=== PATIENT | male | born 1995 | race Caucasian/White ===

== ENCOUNTER 2025-03-22 11:29 | Inpatient (IN) | payer SELFPAY ==
[2025-03-22 11:33] VITALS: BP 155/77; PULSE 108; RESP 16; TEMP 36.9; O2SAT 100; BMI 28.1
--- NOTE | 2025-03-22 14:29 | DI.CT.S_ITS ---
PROCEDURE: CT SOFT TISSUE NECK W CON INDICATIONS: abscess TECHNIQUE: After the administration of intravenous contrast, 3.0 mm axial sections acquired from the sella to the aortic arch. Additional oblique axial 3.0 mm sections acquired through the pharynx. 3 mm thick coronal and sagittal reformats were generated. For radiation dose reduction, the following was used: automated exposure control. COMPARISON: None. FINDINGS: Image quality: Excellent. Lymph nodes: Increased number of small cervical lymph nodes throughout the neck bilaterally. Vessels: Visualized vasculature appears patent. Neck spaces: The oropharynx, nasopharynx, and pharynx demonstrate no mucosal lesions. The vocal cords, false vocal cords, pyriform sinuses, epiglottis, vallecula, and tongue base all appear normal. Subcutaneous edema is seen in the lateral right neck overlying the sternocleidomastoid muscle with a small area of confluent edema but no peripherally enhancing drainable fluid collection. Mild overlying skin thickening. Additional smaller areas of subcutaneous edema are seen in the anterior and lateral right and left face and the left posterior neck. Glands: The parotid and submandibular glands appear normal. Thyroid is unremarkable. Miscellaneous: Visualized brain and orbits appear normal. Lung apices appear clear. Superficial soft tissues appear normal. Bones: No suspicious bony lesions. Visualized sinuses and mastoids appear unremarkable. IMPRESSION: 1. Multifocal small areas of subcutaneous edema in the bilateral face and neck, most notably in the right lateral upper neck overlying the sternocleidomastoid muscle. No drainable abscess is seen. 2. Increased number of cervical lymph nodes, likely reactive. Approved by: Cr Pichardo M.D. on 03/22/2025 at 14:53
--- NOTE | 2025-03-22 14:37 | ED_ITS ---
HPI - Skin/Abscess/Foreign Bdy <Kurtis Pettit PA-C - Last Filed: 03/22/25 17:39> General Chief complaint: Skin/Abscess/Foreign Body Stated complaint: swelling on right side of face Time Seen by Provider: 03/22/25 14:15 Source: patient Mode of arrival: Family Vehicle Limitations: no limitations History of Present Illness HPI narrative: 30-year-old male with no reported past medical history presents to the ED with 2 months of widespread skin rash and abscesses. Patient was seen at the walk-in clinic on 03/18/2025 for a facial abscess on the right cheek, declined to get it drained due to fear of scarring. Patient was given Bactrim which he is currently taking. Prior to this visit, patient had also failed antibiotic treatment with clindamycin and doxycycline. No wound cultures have been performed to date. Patient states that his abscesses started 1st on his upper back, he currently has 3 painful abscesses. There is 1 on his right cheek, a large abscess on the right, anterolateral region of the neck, 1 in left backside of the neck. No active drainage at this time. Patient complains of chills, nausea, vomiting, pain at the site of the abscesses. No chest pain, shortness of breath, fever, lightheadedness, dizziness, syncope. Patient denies IVDU. Patient states he recently used MDMA, denies any other drug use. Sexually active, has a girlfriend he has known for some time. Denies any known immuno compromising conditions. Related Data Previous Rx's ?Medication ?Instructions ?Recorded sulfamethoxazole 800 1 tab PO BID 7 days #14 tabs 03/18/25 mg-trimethoprim 160 mg tablet (Bactrim DS) Allergies Allergy/AdvReac Type Severity Reaction Status Date / Time No Known Drug Allergies Allergy Verified 03/22/25 11:38 Review of Systems <Kurtis Pettit PA-C - Last Filed: 03/22/25 17:39> Constitutional Constitutional: Reports chills, Denies fatigue, Denies fever(s), Denies frequent falls, Denies lethargy and Denies weakness Eyes Eyes: Denies change in vision, Denies eye discharge, Denies irritation and Denies loss of vision ENT Ears, Nose, Mouth, and Throat: Denies change in voice, Denies dizziness, Denies neck pain, Denies sore throat and Denies throat swelling Cardiovascular Cardiovascular: Denies chest pain, Denies irregular heart rhythm, Denies lightheadedness, Denies palpitations, Denies dyspnea, Denies dyspnea on exertion and Denies orthopnea Respiratory Respiratory: Denies cough, Denies dyspnea, Denies dyspnea on exertion and Denies wheezing Gastrointestinal Gastrointestinal: Denies abdominal pain, Denies change in bowel habits, Denies diarrhea, Reports nausea and Reports vomiting Musculoskeletal Musculoskeletal: Denies neck pain and Denies numbness Integumentary/Breasts Skin/Breast: Denies pruritus, Reports non-healing lesions, Denies erythema, Reports rash and Reports wounds Neurologic Neurologic: Denies behavioral changes, Denies confusion, Denies dizziness, Denies frequent falls, Denies loss of vision, Denies numbness and Denies weakness Psychiatric Psychiatric: Denies anxiety, Denies behavioral changes, Denies confusion, Denies depression, Denies homicidal ideation and Denies suicidal ideation Endocrine Endocrine: Denies fatigue, Denies flushing and Denies palpitations Hematologic/Lymphatic Hematologic/Lymphatic: Denies easy bruising Allergic/Immunologic Allergic/Immunologic: Denies urticaria, Denies throat swelling and Denies wheezing Patient History <Kurtis Pettit PA-C - Last Filed: 03/22/25 17:39> Social History household members: friend(s) Smoking Status: Current every day smoker alcohol intake: current Smoking Status: Current every day smoker tobacco type: e-cigarettes and vaping Exam <Kurtis Pettit PA-C - Last Filed: 03/22/25 17:39> Narrative Exam Narrative: Const General:?cooperative, healthy appearing and comfortable [facility] Head:?normal to inspection Ears:?hearing grossly normal bilaterally Nose:?external nose normal Face and sinus:?normal facial exam and sinuses nontender Mouth:?oral mucosae normal Throat:?posterior oropharynx normal Eyes General:?appearance normal, both eyes and all related structures Neck Neck:?normal visual inspection and no lymphadenopathy noted Resp Effort & Inspection:?normal respiratory effort Auscultation:?clear to auscultation bilaterally Cardio Rate:?regular rate Rhythm:?regular rhythm Integumentary Multiple endurant and fluctuant abscesses. Abscess to the right anterolateral neck, right facial cheek, left backside of the neck. No discharge noted on exam. There are multiple healing scabs across the neck and back. Neuro General:?patient alert, patient awake and patient oriented x3 Initial Vital Signs Initial Vital Signs: Vital Signs Temperature 98.4 F 03/22/25 11:33 Pulse Rate 108 H 03/22/25 11:33 Respiratory Rate 16 03/22/25 11:33 Blood Pressure 155/77 H 03/22/25 11:33 Pulse Oximetry 100 03/22/25 11:33 Oxygen Delivery Method Room Air 03/22/25 11:33 <Leo Barron MD - Last Filed: 03/22/25 20:21> Initial Vital Signs Initial Vital Signs: Vital Signs Temperature 98.4 F 03/22/25 11:33 Pulse Rate 108 H 03/22/25 11:33 Respiratory Rate 16 03/22/25 11:33 Blood Pressure 155/77 H 03/22/25 11:33 Pulse Oximetry 100 03/22/25 11:33 Oxygen Delivery Method Room Air 03/22/25 11:33 Course <Kurtis Pettit PA-C - Last Filed: 03/22/25 17:39> Orders Ordered: ED Orders 03/22/25 14:25 CBC Auto Diff [Complete Blood Count AUTO DIFF] Stat CMP [Comprehensive Metabolic Panel] Stat HIV 1 & 2 Ab/Ag 4th Gen Combo Stat Lactate (Lactic Acid) Stat Lipase Stat 03/22/25 14:27 A1C [Hemoglobin A1C% w Est Avg Glu] Stat 03/22/25 14:29 CT soft tissue neck w con Stat 03/22/25 14:50 Blood Culture Stat Urine Drug Screen, Rapid Stat 03/22/25 15:43 Wound Culture and Gram Stain Stat Hydrocodone Bitart/Acetaminophen (Hydrocodone/Acet 5/325 Tablet) 2 tab PO Q4H PRN PRN Reason: Pain, Severe (7-10) Hydrocodone Bitart/Acetaminophen (Hydrocodone/Acet 5/325 Tablet) 1 tab PO Q4H PRN PRN Reason: Pain, Moderate (4-6) Vancomycin HCl (Vancomycin) 1,250 mg in 250 mls @ 250 mls/hr IV Q8H PRAVIN Naloxone HCl (Naloxone 0.4 Mg/Ml Vial) 0.2 mg IV Q2MIN PRN PRN Reason: Opiate Reversal Vancomycin HCl (Vancomycin Per Pharmacy) 1 request MISC NOW PRN PRN Reason: Cellulitis neck Vancomycin HCl (Vancomycin Trough) 1 request MISC NOW ONE Stop: 03/23/25 15:31 Discontinued Medications Acetaminophen (Acetaminophen 325 Mg Tablet) 975 mg PO NOW ONE Stop: 03/22/25 14:33 Last Admin: 03/22/25 14:45 Dose: 975 mg Documented By: [place] Vancomycin HCl/Dextrose (Vancomycin) 1,500 mg in 300 mls @ 200 mls/hr IV NOW ONE Stop: 03/22/25 16:54 Last Infusion: 03/22/25 18:10 Dose: Infused Documented By: Admin: 03/22/25 16:05 Dose: 200 mls/hr Documented By: [place] Ketorolac Tromethamine (Ketorolac 30 Mg/Ml Vial) 30 mg IV NOW ONE Stop: 03/22/25 14:33 Last Admin: 03/22/25 14:44 Dose: 30 mg Documented By: [place] Ondansetron HCl (Ondansetron 4 Mg/2 Ml Inj) 4 mg IV NOW ONE Stop: 03/22/25 14:33 Last Admin: 03/22/25 14:44 Dose: 4 mg Documented By: [place] Vital Signs Vital signs: Vital Signs - 8 hr 03/22/25 16:10 Pulse Rate 83 Respiratory Rate 16 Blood Pressure 144/68 H Pulse Oximetry 98 Oxygen Delivery Method Room Air <Leo Barron MD - Last Filed: 03/22/25 20:21> Orders Ordered: ED Orders 03/22/25 14:25 CBC Auto Diff [Complete Blood Count AUTO DIFF] Stat CMP [Comprehensive Metabolic Panel] Stat HIV 1 & 2 Ab/Ag 4th Gen Combo Stat Lactate (Lactic Acid) Stat Lipase Stat 03/22/25 14:27 A1C [Hemoglobin A1C% w Est Avg Glu] Stat 03/22/25 14:29 CT soft tissue neck w con Stat 03/22/25 14:50 Blood Culture Stat Urine Drug Screen, Rapid Stat 03/22/25 15:43 Wound Culture and Gram Stain Stat Hydrocodone Bitart/Acetaminophen (Hydrocodone/Acet 5/325 Tablet) 2 tab PO Q4H PRN PRN Reason: Pain, Severe (7-10) Hydrocodone Bitart/Acetaminophen (Hydrocodone/Acet 5/325 Tablet) 1 tab PO Q4H PRN PRN Reason: Pain, Moderate (4-6) Vancomycin HCl (Vancomycin) 1,250 mg in 250 mls @ 250 mls/hr IV Q8H PRAVIN Naloxone HCl (Naloxone 0.4 Mg/Ml Vial) 0.2 mg IV Q2MIN PRN PRN Reason: Opiate Reversal Vancomycin HCl (Vancomycin Per Pharmacy) 1 request MISC NOW PRN PRN Reason: Cellulitis neck Vancomycin HCl (Vancomycin Trough) 1 request MISC NOW ONE Stop: 03/23/25 15:31 Discontinued Medications Acetaminophen (Acetaminophen 325 Mg Tablet) 975 mg PO NOW ONE Stop: 03/22/25 14:33 Last Admin: 03/22/25 14:45 Dose: 975 mg Documented By: [place] Vancomycin HCl/Dextrose (Vancomycin) 1,500 mg in 300 mls @ 200 mls/hr IV NOW ONE Stop: 03/22/25 16:54 Last Infusion: 03/22/25 18:10 Dose: Infused Documented By: Admin: 03/22/25 16:05 Dose: 200 mls/hr Documented By: [place] Ketorolac Tromethamine (Ketorolac 30 Mg/Ml Vial) 30 mg IV NOW ONE Stop: 03/22/25 14:33 Last Admin: 03/22/25 14:44 Dose: 30 mg Documented By: [place] Ondansetron HCl (Ondansetron 4 Mg/2 Ml Inj) 4 mg IV NOW ONE Stop: 03/22/25 14:33 Last Admin: 03/22/25 14:44 Dose: 4 mg Documented By: [place] Vital Signs Vital signs: Vital Signs - 8 hr 03/22/25 16:10 Pulse Rate 83 Respiratory Rate 16 Blood Pressure 144/68 H Pulse Oximetry 98 Oxygen Delivery Method Room Air MDM - Skin/Abscess/Foreign Bdy <Kurtis Pettit PA-C - Last Filed: 03/22/25 17:39> Lab Data 03/22/25 14:25 03/22/25 14:25 Labs: Lab Results 03/22/25 03/22/25 03/22/25 Range/Units 14:25 14:27 14:50 WBC 7.2 (4.5-11.0) X10^3/uL RBC 5.14 (4.5-5.9) X10^6/uL Hgb 15.4 (13.5-17.5) g/dL Hct 45.7 (41-53) % MCV 88.9 (80-100) fL MCH 30.0 (26-34) PG MCHC 33.7 (30-36) % RDW 13.6 (11.6-14.8) % Plt Count 395 (150-400) X10^3/uL Neut % (Auto) 75.7 H (50-75) % Lymph % (Auto) 16.2 L (25-40) % [place] % (Auto) 5.2 (3-14) % Eos % (Auto) 1.9 L (2-4) % Baso % (Auto) 1.0 (0-2) % Neut # (Auto) 5400 (4455-0950) /uL Lymph # (Auto) 1200 (0962-6785) /uL [place] # (Auto) 400 (0-900) /uL Eos # (Auto) 100 (0-450) /uL Baso # (Auto) 100 (0-100) /uL Sodium 138 (137-145) mmol/L Potassium 4.3 (3.4-5.1) mmol/L Chloride 102 (98-107) mmol/L Carbon Dioxide 27 (22-32) mmol/L BUN 13 (9-20) mg/dL Creatinine 0.69 (0.66-1.25) mg/dL Estimated GFR > 60 (>60) mL/min BUN/Creatinine Ratio 18.8 (6-22) Glucose 98 (70-99) mg/dL Hemoglobin A1c 4.8 (4.0-6.0) % Lactate 1.4 (0.7-2.1) mmol/L Calcium 9.7 (8.4-10.2) mg/dL Total Bilirubin 0.5 (0.2-1.3) mg/dL AST 24 (17-59) IU/L ALT 27 (<50) IU/L Alkaline Phosphatase 102 (38-126) U/L Total Protein 7.3 (6.3-8.2) g/dL Albumin 4.5 (3.5-5.0) g/dL Globulin 2.8 (1.7-4.1) g/dL Albumin/Globulin Ratio 1.6 (1.0-2.8) Lipase 76 (23-300) U/L U Opiates 300ng/mL cut Negative (Negative) Ur Oxycodone Screen Negative (Negative) Urine Methadone Screen Negative (Negative) Ur Barbiturates Screen Negative (Negative) U Tricyclic Antidepress Negative (Negative) Ur Phencyclidine Scrn Negative (Negative) Ur Amphetamines Screen Positive H (Negative) U Methamphetamines Scrn Positive H (Negative) Ur MDMA Scrn (Ecstasy) Negative (Negative) U Benzodiazepines Scrn Negative (Negative) Urine Cocaine Screen Negative (Negative) U Marijuana (THC) Screen Negative (Negative) Urine pH Normal (Normal) Urine Specific [place] Normal (Normal) Ur Creatinine Normal (Normal) HIV 1&2 Ab/P24 Ag 4thGn Negative (NEGATIVE) Urine Dip Bedside Urine Glucose Negative Bedside Urine Bilirubin - Negative Bedside Urine Ketone - Negative Urine Specific [place] 1.015 Bedside Urine Occult Blood - Negative Bedside Urine pH 8.0 Bedside Urine Protein - Negative Bedside Urine Urobilinogen - Negative Bedside Urine Nitrite - Negative Bedside Urine Leukocytes - Negative Esterase MDM Narrative Medical decision making narrative: 30-year-old male with no reported past medical history presents to the ED with 2 months of widespread skin rash and abscesses. Concern for abscess versus sepsis versus immunocompromised conditions versus other. Will obtain labs, UA, UDS, blood cultures. Will give Toradol, Zofran, Tylenol. Will reassess. Labs within normal limits. WBC 7.2. Liver and kidney function within normal limits. A1c 4.8. UA is negative for UTI. Urine tox screen is positive for amphetamines and methamphetamines. Patient endorses ADHD and takes medication for it. Patient denies taking meth amphetamines, endorses he took a MDMA. Also vague about how long he has been taking recreational drugs for. De roofed the scabbed portion of the neck wound, sample sent for wound culture. IV antibiotics started. Will consult hospitalist for admission for IV antibiotics. Hospitalist Dr. Arita was consulted, he graciously accepts patient for inpatient admission. Findings and disposition discussed with patient, patient is agreeable. Medical records reviewed: Yes <Leo Barron MD - Last Filed: 03/22/25 20:21> Lab Data Labs: Lab Results 03/22/25 03/22/25 03/22/25 Range/Units 14:25 14:27 14:50 WBC 7.2 (4.5-11.0) X10^3/uL RBC 5.14 (4.5-5.9) X10^6/uL Hgb 15.4 (13.5-17.5) g/dL Hct 45.7 (41-53) % MCV 88.9 (80-100) fL MCH 30.0 (26-34) PG MCHC 33.7 (30-36) % RDW 13.6 (11.6-14.8) % Plt Count 395 (150-400) X10^3/uL Neut % (Auto) 75.7 H (50-75) % Lymph % (Auto) 16.2 L (25-40) % [place] % (Auto) 5.2 (3-14) % Eos % (Auto) 1.9 L (2-4) % Baso % (Auto) 1.0 (0-2) % Neut # (Auto) 5400 (5312-6724) /uL Lymph # (Auto) 1200 (0231-8693) /uL [place] # (Auto) 400 (0-900) /uL Eos # (Auto) 100 (0-450) /uL Baso # (Auto) 100 (0-100) /uL Sodium 138 (137-145) mmol/L Potassium 4.3 (3.4-5.1) mmol/L Chloride 102 (98-107) mmol/L Carbon Dioxide 27 (22-32) mmol/L BUN 13 (9-20) mg/dL Creatinine 0.69 (0.66-1.25) mg/dL Estimated GFR > 60 (>60) mL/min BUN/Creatinine Ratio 18.8 (6-22) Glucose 98 (70-99) mg/dL Hemoglobin A1c 4.8 (4.0-6.0) % Lactate 1.4 (0.7-2.1) mmol/L Calcium 9.7 (8.4-10.2) mg/dL Total Bilirubin 0.5 (0.2-1.3) mg/dL AST 24 (17-59) IU/L ALT 27 (<50) IU/L Alkaline Phosphatase 102 (38-126) U/L Total Protein 7.3 (6.3-8.2) g/dL Albumin 4.5 (3.5-5.0) g/dL Globulin 2.8 (1.7-4.1) g/dL Albumin/Globulin Ratio 1.6 (1.0-2.8) Lipase 76 (23-300) U/L U Opiates 300ng/mL cut Negative (Negative) Ur Oxycodone Screen Negative (Negative) Urine Methadone Screen Negative (Negative) Ur Barbiturates Screen Negative (Negative) U Tricyclic Antidepress Negative (Negative) Ur Phencyclidine Scrn Negative (Negative) Ur Amphetamines Screen Positive H (Negative) U Methamphetamines Scrn Positive H (Negative) Ur MDMA Scrn (Ecstasy) Negative (Negative) U Benzodiazepines Scrn Negative (Negative) Urine Cocaine Screen Negative (Negative) U Marijuana (THC) Screen Negative (Negative) Urine pH Normal (Normal) Urine Specific [place] Normal (Normal) Ur Creatinine Normal (Normal) HIV 1&2 Ab/P24 Ag 4thGn Negative (NEGATIVE) Urine Dip Bedside Urine Glucose Negative Bedside Urine Bilirubin - Negative Bedside Urine Ketone - Negative Urine Specific [place] 1.015 Bedside Urine Occult Blood - Negative Bedside Urine pH 8.0 Bedside Urine Protein - Negative Bedside Urine Urobilinogen - Negative Bedside Urine Nitrite - Negative Bedside Urine Leukocytes - Negative Esterase Discharge Plan Departure Patient Disposition: Admitted As Inpatient Clinical Impression: Abscess of skin or subcutaneous tissue Qualifiers: Site of cutaneous abscess: neck Qualified Code(s): L02.11 - Cutaneous abscess of neck Admit Date/Time: 03/22/25 17:15 Admit Provider: Karlos Singh ED Sign-out <Leo Barron MD - Last Filed: 03/22/25 20:21> Cosign ED Attending Drake Attestation: I was available for consultation during this patient's time in the emergency department however they were in a separate care area and I was not consulted on this patient's care they were seen solely by the above CONOR
[2025-03-22 14:41] LABS: Add Manual Diff / Slide Review NO; Basophils Absolute Auto 100 /uL (0-100); Eosinophils Absolute Auto 100 /uL (0-450); Eosinophils Percent Auto 1.9 % (2-4); Hematocrit 45.7 % (41-53); Hemoglobin 15.4 g/dL (13.5-17.5); Lymphocytes Absolute Auto 1200 /uL (1100-4500); Lymphocytes Percent Auto 16.2 % (25-40); Mean Corpuscular HGB Conc 33.7 % (30-36); Mean Corpuscular Volume 88.9 fL (80-100); Monocytes Absolute Auto 400 /uL (0-900); Monocytes Percent Auto 5.2 % (3-14); Neutrophils Absolute Auto 5400 /uL (1500-7000); Neutrophils Percent Auto 75.7 % (50-75); Platelet Count 395 X10^3/uL (150-400); Red Blood Cell Count 5.14 X10^6/uL (4.5-5.9); Red Cell Distribution Width 13.6 % (11.6-14.8); White Blood Cell Count 7.2 X10^3/uL (4.5-11.0)
[2025-03-22] MEDS: ONDANSETRON 4 MG/2 ML INJ IV (14:44)
[2025-03-22] MEDS: KETOROLAC 30 MG/ML VIAL IV (14:44)
[2025-03-22] MEDS: ACETAMINOPHEN 325 MG TABLET 975 MG PO (14:45)
[2025-03-22 14:53] LABS: Lactate (Lactic Acid) 1.4 mmol/L (0.7-2.1)
[2025-03-22 14:54] LABS: Alanine Aminotransferase 27 IU/L (<50); Albumin 4.5 g/dL (3.5-5.0); Albumin Globulin Ratio 1.6 (1.0-2.8); Alkaline Phosphatase 102 U/L (38-126); Aspartate Aminotransferase 24 IU/L (17-59); BUN Creatinine Ratio 18.8 (6-22); Bilirubin Total 0.5 mg/dL (0.2-1.3); Blood Urea Nitrogen 13 mg/dL (9-20); Calcium 9.7 mg/dL (8.4-10.2); Carbon Dioxide 27 mmol/L (22-32); Chloride 102 mmol/L (98-107); Estimated Glomerular Filt Rate > 60 mL/min (>60); Globulin 2.8 g/dL (1.7-4.1); Glucose 98 mg/dL (70-99); HEMOLYSIS < 15 (0-50); Lipase 76 U/L (23-300); Potassium 4.3 mmol/L (3.4-5.1); Sodium 138 mmol/L (137-145); Total Protein 7.3 g/dL (6.3-8.2)
[2025-03-22 15:18] LABS: Ur Creatinine Normal (Normal); Ur Specific Gravity Normal (Normal); Urine Cocaine Negative (Negative); Urine Opiates Negative (Negative); Urine THC Negative (Negative); Urine pH Normal (Normal)
[2025-03-22 15:19] LABS: Urine Amphetamines Positive (Negative); Urine Barbiturates Negative (Negative); Urine Benzodiazepines Negative (Negative); Urine MDMA Negative (Negative); Urine Methadone Negative (Negative); Urine Oxycodone Negative (Negative); Urine Phencyclidine Negative (Negative); Urine Tricyclic Antidepressant Negative (Negative)
[2025-03-22 15:25] LABS: Hemoglobin A1C% w Est Avg Glu 4.8 % (4.0-6.0)
[2025-03-22] MEDS: VANCOMYCIN 1,500 MG/300 ML PIGGYBACK 200 MG IV (16:05)
[2025-03-22 16:10] VITALS: BP 144/68; PULSE 83; RESP 16; O2SAT 98
[2025-03-22 17:09] LABS: HIV 1 & 2 Ab/Ag 4th Gen Combo NEGATIVE (NEGATIVE)
--- NOTE | 2025-03-22 17:48 | PM.HP.1 ---
History of Present Illness History of Present Illness Date Patient Seen: 03/22/25 Chief complaint: Cellulitis right neck and face with carbuncle Narrative: Chief complaint: Right-sided neck pain on a stiffness and fever and chills secondary to cellulitis and carbuncle History of present illness: 30-year-old male with no reported past medical history presents to the ED with 2 months of widespread skin rash and abscesses. Patient was seen at the walk-in clinic on 03/18/2025 for a facial abscess on the right cheek, declined to get it drained due to fear of scarring. Patient was given Bactrim which he is currently taking. Prior to this visit, patient had also failed antibiotic treatment with clindamycin and doxycycline. No wound cultures have been performed to date. Patient states that his abscesses started 1st on his upper back, he currently has 3 painful abscesses. There is 1 on his right cheek, a large abscess on the right, anterolateral region of the neck, 1 in left backside of the neck. No active drainage at this time. Patient complains of chills, nausea, vomiting, pain at the site of the abscesses. No chest pain, shortness of breath, fever, lightheadedness, dizziness, syncope. Patient denies IVDU. Patient states he recently used MDMA, denies any other drug use. Sexually active, has a girlfriend he has known for some time. Denies any known immuno compromising conditions. Review of systems: No weight loss weight gain No difficulty swallowing No chest pain palpitations wheezing shortness for breath No nausea vomiting diarrhea constipation No urinary symptoms No paresthesia paresis Physical exam: Very ragged young gentleman no acute distress Carbuncle on the right measuring about 5 cm across of oral lying the sternocleidomastoid muscle similar smaller carbuncle posterior neck with shotty cervical adenopathy Heart rate and rhythm regular no murmurs Lungs clear to auscultation Abdomen-benign Extremities no splinter hemorrhages [place] spots Assessment and plan: Cellulitis and carbuncle with failure of multiple outpatient medicines including Bactrim clindamycin doxycycline suspicious for MRSA no signs of deep tissue invasion or involvement IV vancomycin Blood cultures Monitor progress No DVT prophylaxis indicated Full code blue [facility] Social History Smoking Status: Current every day smoker Meds Home Medications and Allergies Home Medications ?Medication ?Instructions ?Recorded ?Confirmed ?Type sulfamethoxazole 800 1 tab PO BID 7 days #14 tabs 03/18/25 03/18/25 Rx mg-trimethoprim 160 mg tablet (Bactrim DS) Allergies Allergy/AdvReac Type Severity Reaction Status Date / Time No Known Drug Allergies Allergy Verified 03/22/25 11:38 Exam Vital Signs (past 8 hours): - 03/22/25 11:33 03/22/25 16:10 Temperature 98.4 F Pulse Rate 108 H 83 Respiratory Rate 16 16 Blood Pressure 155/77 H 144/68 H Pulse Oximetry 100 98 Oxygen Delivery Method Room Air Room Air Oxygen Delivery Method Room Air Objective Labs 03/22/25 14:25 03/22/25 14:25 Labs: Laboratory Results - last 24 hr 03/22/25 03/22/25 03/22/25 14:25 14:27 14:50 WBC 7.2 RBC 5.14 Hgb 15.4 Hct 45.7 MCV 88.9 MCH 30.0 MCHC 33.7 RDW 13.6 Plt Count 395 Neut % (Auto) 75.7 H Lymph % (Auto) 16.2 L [place] % (Auto) 5.2 Eos % (Auto) 1.9 L Baso % (Auto) 1.0 Neut # (Auto) 5400 Lymph # (Auto) 1200 [place] # (Auto) 400 Eos # (Auto) 100 Baso # (Auto) 100 Sodium 138 Potassium 4.3 Chloride 102 Carbon Dioxide 27 BUN 13 Creatinine 0.69 Estimated GFR > 60 BUN/Creatinine Ratio 18.8 Glucose 98 Hemoglobin A1c 4.8 Lactate 1.4 Calcium 9.7 Total Bilirubin 0.5 AST 24 ALT 27 Alkaline Phosphatase 102 Total Protein 7.3 Albumin 4.5 Globulin 2.8 Albumin/Globulin Ratio 1.6 Lipase 76 U Opiates 300ng/mL cut Negative Ur Oxycodone Screen Negative Urine Methadone Screen Negative Ur Barbiturates Screen Negative U Tricyclic Antidepress Negative Ur Phencyclidine Scrn Negative Ur Amphetamines Screen Positive H U Methamphetamines Scrn Positive H Ur MDMA Scrn (Ecstasy) Negative U Benzodiazepines Scrn Negative Urine Cocaine Screen Negative U Marijuana (THC) Screen Negative Urine pH Normal Urine Specific [place] Normal Ur Creatinine Normal HIV 1&2 Ab/P24 Ag 4thGn Negative Assessment & Plan Time-Based Coding :: [55 minutes spent with patient and on the chart (including review of chart, obtaining history, exam, reviewing outside data, placing orders, documenting exam and treatment plan, and counseling patient) Quality MIPS - Admit I confirm the patient?s Advance Care Plan is present, Code status is documented, Surrogate decision maker is in patient?s record [If Yes, STOP here]: Yes MIPS - Meds 'Current medications' to include all prescriptions, [id number] products, herbals, cannabis/cannabidiol products, and vitamin/mineral/dietary (nutritional) supplements. I have utilized all available resources to obtain, update, or review the patient?s current medications. [If Yes, STOP here]: Yes
[2025-03-22 18:20] VITALS: BMI 28.1
[2025-03-22 18:36] VITALS: BP 149/87; PULSE 69; RESP 22; TEMP 36.7; O2SAT 99
[2025-03-22 19:43] VITALS: BP 122/67; PULSE 75; RESP 16; TEMP 36.4; O2SAT 99
[2025-03-22 23:55] VITALS: BP 136/74; PULSE 61; RESP 16; TEMP 36.2; O2SAT 98
[2025-03-23] MEDS: VANCOMYCIN 1,250 MG/250 ML PIGGYBACK 250 MG IV ×3 (00:16→16:45)
[2025-03-23] MEDS: HYDROCODONE/ACET 5/325 TABLET 2 TAB PO ×5 (00:29→23:22)
[2025-03-23 04:34] LABS: BUN Creatinine Ratio 18.8 (6-22); Blood Urea Nitrogen 15 mg/dL (9-20); Calcium 9.3 mg/dL (8.4-10.2); Carbon Dioxide 27 mmol/L (22-32); Chloride 103 mmol/L (98-107); Estimated Glomerular Filt Rate > 60 mL/min (>60); Glucose 98 mg/dL (70-99); HEMOLYSIS < 15 (0-50); Potassium 4.7 mmol/L (3.4-5.1); Sodium 137 mmol/L (137-145)
[2025-03-23 04:53] LABS: Vancomycin Trough 13.5 ug/mL (10-20)
[2025-03-23 06:17] VITALS: BP 126/72; PULSE 60; RESP 18; TEMP 36.5; O2SAT 98
[2025-03-23] MEDS: SODIUM CHLORIDE 0.9% FLUSH 10 ML IV ×3 (09:43→17:53)
[2025-03-23 10:26] VITALS: BP 119/69; PULSE 66; RESP 20; TEMP 36.4; O2SAT 99
[2025-03-23 14:30] VITALS: BP 146/56; PULSE 75; RESP 14; TEMP 36.2; O2SAT 98
--- NOTE | 2025-03-23 15:15 | CM.DANOTE ---
B DCP Note Pt is a 30yo M admitted with cellulitis in his right neck after failing OP tx x3. PCP none listed Payer self pay [employer] reviewed EMR. pt lives in [place], here on a construction contract, working on the [employer]. per provider in morning rounds, anticipate dc tomorrow afternoon if swelling improves. per RN,, no obvious CM needs. [employer] unable to meet with pt today due to triaging needs. f/u if work excuse paperwork needed at dc. P: anticipate dc tomorrow after another few doses of IV abx, no obvious identified barriers to safe dc home at this time. will continue to follow as needed IRENA Roach Discharge Planning/Care Management CM Discharge Assessment Start: 03/22/25 18:20 Freq: Status: Active Protocol: Document 03/23/25 15:12 SL (Rec: 03/23/25 15:13 SL Desktop) Discharge Planning Assessment Assigned Discharge IRENA Funez Blanket Inspector DPOA/Assigned emergency contact=Ismael (employer) Designee Name Contact Information [phone] Advance Directives? No History Provided By Patient Prior Living House Arrangements Household Members friend(s) Type of Drives own vehicle transporation used prior to admit Independent with ADL Yes 's Is patient alert and Yes oriented? Discharge Plan Home Referrals Initiated None needed Review Status In Process Please Provide Date 03/23/25 Initial DC Assessment Was Performed Next Review Type Continued Stay Review
[2025-03-23] MEDS: VANCOMYCIN TROUGH 1 REQUEST MISC (15:30)
--- NOTE | 2025-03-23 16:23 | PC.NURSE ---
Pt resting at intervals Med x 2 for discomfort w/ good relief. Vanco through drawn Pt independent in roon Call light w/in reach; pt calls appropriately for needs. Continue w/plan of care.
[2025-03-23 16:31] LABS: Vancomycin Trough 8.9 ug/mL (10-20)
[2025-03-23] MEDS: cefTRIAXone 2,000 MG in SODIUM CHLORIDE 0.9% 100 ML 200 MG IV (19:12)
[2025-03-23 19:56] VITALS: BP 118/84; PULSE 83; RESP 16; TEMP 36.9; O2SAT 97
[2025-03-23] MEDS: VANCOMYCIN 1,000 MG/200 ML PIGGYBACK 200 MG IV (22:04)
[2025-03-23 23:49] VITALS: TEMP 36.4
[2025-03-23] MEDS: MORPHINE 2 MG/ML INJ IV (23:58)
[2025-03-24] MEDS: VANCOMYCIN 1,000 MG/200 ML PIGGYBACK 200 MG IV ×2 (03:57→10:35)
[2025-03-24] MEDS: MORPHINE 2 MG/ML INJ IV ×2 (04:00→21:59)
[2025-03-24] MEDS: SODIUM CHLORIDE 0.9% FLUSH 10 ML IV ×2 (04:01→08:57)
[2025-03-24] MEDS: HYDROCODONE/ACET 5/325 TABLET 2 TAB PO ×5 (06:26→22:12)
[2025-03-24 06:57] VITALS: BP 129/67; PULSE 61; RESP 14; TEMP 36.3; O2SAT 97
[2025-03-24 08:00] VITALS: BP 130/83; PULSE 89; RESP 16; TEMP 36.3; O2SAT 98
--- NOTE | 2025-03-24 10:43 | P.CONS_ITS ---
History of Present Illness Consult details Date Patient Seen: 03/24/25 Chief complaint: Cellulitis right neck and face with carbuncle Reason for consult: Cervical abscess Narrative: 30-year-old male with a several day history of a growing red painful lump on his neck. He had a similar lesion on his right cheek a few days ago which he popped on his own. This is in the process of resolving. He presented to the ED complaining of a right cervical lesion as described. I am advised that this is MRSA positive. Meds Home Medications and Allergies Home Medications ?Medication ?Instructions ?Recorded ?Confirmed ?Type sulfamethoxazole 800 1 tab PO BID 7 days #14 tabs 03/18/25 03/23/25 Rx mg-trimethoprim 160 mg tablet (Bactrim DS) dextroamphetamine-amphetamine 30 30 mg PO DAILY PRN AD HD 03/24/25 03/24/25 History mg tablet (Adderall) Allergies Allergy/AdvReac Type Severity Reaction Status Date / Time No Known Drug Allergies Allergy Verified 03/22/25 11:38 Review of Systems Review of Systems Narrative: Comprehensive review of systems negative to direct questioning with Exam Vital Signs (past 8 hours): - 03/24/25 06:57 03/24/25 08:00 Temperature 97.3 F L 97.3 F L Pulse Rate 61 89 Respiratory Rate 14 16 Blood Pressure 129/67 130/83 Pulse Oximetry 97 98 Oxygen Flow Rate 0 0 Oxygen Delivery Method Room Air Oxygen Flow Rate 0 Narrative Exam Narrative: Head is normocephalic and atraumatic. Neck is supple. There is a 2 x 3 cm fluctuant, erythematous tender mass over the proximal right sternocleidomastoid muscle. There is some centrally devitalized skin overlying this lesion. Back is without CVA or spinous process tenderness. Lungs are clear to auscultation. Chest is symmetric nontender with normal inspiratory and expiratory excursion. Heart has a regular rate and rhythm with no murmur or gallop. Abdomen is soft and nontender with normal bowel sounds. Neurological exam is grossly nonfocal. Extremities manifests full range of motion. Objective Labs 03/22/25 14:25 03/23/25 03:30 Labs: Laboratory Results - last 24 hr 03/23/25 15:35 Vancomycin Trough 8.9 L PFSH Social History household members: friend(s) Tobacco & Substance Use Smoking Status: Current every day smoker alcohol intake: current Assessment & Plan Assessment and plan (1) Abscess of skin or subcutaneous tissue: Qualifiers: Site of cutaneous abscess: neck Qualified Code(s): L02.11 - Cutaneous abscess of neck Status: Acute Plan I have recommended local anesthetic incision and drainage with secondary intent healing to follow. Alternatives, risks and benefits were discussed in detail. Patient voices understanding, desires to proceed as I have outlined. We will accommodate him at bedside. Time-Based Coding :: [TOTAL MINUTES] spent with patient and on the chart (including review of chart, obtaining history, exam, reviewing outside data, placing orders, documenting exam and treatment plan, and counseling patient) on [DATE]. PROFEE Charge Codes Inpatient or Observation consultation: 22101
--- NOTE | 2025-03-24 10:52 | PM.PN.1 ---
Subjective Subjective Interval history: Chief complaint: Right-sided neck pain on a stiffness and fever and chills secondary to cellulitis and carbuncle History of present illness: 30-year-old male with no reported past medical history presents to the ED with 2 months of widespread skin rash and abscesses. Patient was seen at the walk-in clinic on 03/18/2025 for a facial abscess on the right cheek, declined to get it drained due to fear of scarring. Patient was given Bactrim which he is currently taking. Prior to this visit, patient had also failed antibiotic treatment with clindamycin and doxycycline. No wound cultures have been performed to date. Patient states that his abscesses started 1st on his upper back, he currently has 3 painful abscesses. There is 1 on his right cheek, a large abscess on the right, anterolateral region of the neck, 1 in left backside of the neck. No active drainage at this time. Patient complains of chills, nausea, vomiting, pain at the site of the abscesses. No chest pain, shortness of breath, fever, lightheadedness, dizziness, syncope. Patient denies IVDU. Patient states he recently used MDMA, denies any other drug use. Sexually active, has a girlfriend he has known for some time. Denies any known immuno compromising conditions. S: Increased tenderness and swelling of abscess in the right aspect of the neck. No difficulty speaking or swallowing. No stridor. Exam Vital Signs (past 8 hours): - 03/24/25 06:57 03/24/25 08:00 Temperature 97.3 F L 97.3 F L Pulse Rate 61 89 Respiratory Rate 14 16 Blood Pressure 129/67 130/83 Pulse Oximetry 97 98 Oxygen Flow Rate 0 0 Oxygen Delivery Method Room Air Oxygen Flow Rate 0 Narrative Exam Narrative: NAD, alert and oriented. Fluent speech. Lungs are clear, normal rate and effort. Heart is regular, no murmur gallop or rub. Abdomen is soft, non distended. Extremities are free of edema. Right aspect of his neck is notable for a red and swollen area of abscess. Objective Labs 03/22/25 14:25 03/23/25 03:30 Labs: Laboratory Results - last 24 hr 03/23/25 15:35 Vancomycin Trough 8.9 L [facility] Social History household members: friend(s) Smoking Status: Current every day smoker alcohol intake: current Assessment & Plan Assessment & Plan narrative: 1. Neck abscess, MRSA. This is worse. Plan: Continue antibiotics General surgery consultation for incision and drainage today. Time-Based Coding :: [TOTAL MINUTES] spent with patient and on the chart (including review of chart, obtaining history, exam, reviewing outside data, placing orders, documenting exam and treatment plan, and counseling patient) on [DATE].
[2025-03-24] MEDS: HYDROMORPHONE 2 MG INJ IV ×3 (10:58→19:53)
[2025-03-24] MEDS: diazePAM 10 MG/2 ML SYRINGE 5 MG IV (10:59)
--- NOTE | 2025-03-24 11:16 | PM.OP.1 ---
Operative Date/Time/Diagnoses Date of procedure: 03/24/25 Time of procedure: 11:00 Pre-op diagnosis: Right cervical abscess Post-op diagnosis: same Procedure & Clinicians Procedure: Incision and drainage Same procedure as scheduled: Yes Indications: Right cervical abscess Surgeon: Connor Ellison Click Yes if Unassisted: Yes Anesthesia Type: Local Operative Notes Findings: Right cervical abscess drained Closure Type: not applicable (Wound to heal by secondary intent) Specimen(s): none sent Estimated Blood Loss (mL): 5 Blood products transfused: none Procedure in detail: Patient was placed on the bed in the left lateral decubitus position. The skin of the right neck at the lesion was prepped and draped in the usual sterile manner. A field block of 1% xylocaine was instilled into the skin and subcutaneous tissues at the putative incision site and a 15 blade was used to make a 3 cm incision in the long axis of the abscess cavity. A few mL of turbid purulent fluid was drained. The wound was probed with a cotton tip applicator. Hemostasis was obtained with direct pressure and the wound was packed open with sterile gauze. Twice daily dressing changes are instituted. The patient tolerated the procedure well and was retained in his hospital room for continued treatment. Complications: none Post-operative Condition: stable Disposition: Acute Care Plan for aftercare: B.i.d. gauze dressing changes. Continue IV antibiotics.
[2025-03-24] MEDS: NICOTINE 7 MG PATCH TOP (11:56)
[2025-03-24 13:00] VITALS: BP 146/83; PULSE 75; RESP 20; TEMP 36.4; O2SAT 99
[2025-03-24 15:00] VITALS: BP 129/72; PULSE 75; RESP 18; TEMP 35.9; O2SAT 99
[2025-03-24] MEDS: VANCOMYCIN 1,500 MG/300 ML PIGGYBACK 200 MG IV (17:54)
[2025-03-24] MEDS: VANCOMYCIN TROUGH 1 REQUEST MISC (17:54)
[2025-03-24] MEDS: cefTRIAXone 2,000 MG in SODIUM CHLORIDE 0.9% 100 ML 200 MG IV (19:48)
[2025-03-24 20:00] VITALS: BP 122/82; PULSE 78; RESP 18; TEMP 36.6; O2SAT 98
[2025-03-24] MEDS: TRIMETH/SULFA 160/800 (DS) TABLET 1 TAB PO (20:31)
[2025-03-25] MEDS: VANCOMYCIN 1,500 MG/300 ML PIGGYBACK 200 MG IV ×2 (01:07→09:50)
[2025-03-25] MEDS: HYDROMORPHONE 2 MG INJ IV ×2 (02:32→09:50)
[2025-03-25 08:00] VITALS: BP 122/71; PULSE 60; RESP 12; TEMP 36.4; O2SAT 99
[2025-03-25] MEDS: TRIMETH/SULFA 160/800 (DS) TABLET 1 TAB PO (08:45)
[2025-03-25] MEDS: HYDROCODONE/ACET 5/325 TABLET 2 TAB PO (08:46)
[2025-03-25] MEDS: SODIUM CHLORIDE 0.9% FLUSH 10 ML IV (08:46)
--- NOTE | 2025-03-25 09:39 | PM.DS.1 ---
History of Present Illness History of Present Illness Chief complaint: Cellulitis right neck and face with carbuncle Narrative: Chief complaint: Right-sided neck pain on a stiffness and fever and chills secondary to cellulitis and carbuncle History of present illness: 30-year-old male with no reported past medical history presents to the ED with 2 months of widespread skin rash and abscesses. Patient was seen at the walk-in clinic on 03/18/2025 for a facial abscess on the right cheek, declined to get it drained due to fear of scarring. Patient was given Bactrim which he is currently taking. Prior to this visit, patient had also failed antibiotic treatment with clindamycin and doxycycline. No wound cultures have been performed to date. Patient states that his abscesses started 1st on his upper back, he currently has 3 painful abscesses. There is 1 on his right cheek, a large abscess on the right, anterolateral region of the neck, 1 in left backside of the neck. No active drainage at this time. Patient complains of chills, nausea, vomiting, pain at the site of the abscesses. No chest pain, shortness of breath, fever, lightheadedness, dizziness, syncope. Patient denies IVDU. Patient states he recently used MDMA, denies any other drug use. Sexually active, has a girlfriend he has known for some time. Denies any known immuno compromising conditions. Discharge Providers Provider Date of admission: 03/22/25 17:15 Discharge Date: 03/25/25 Consults: 03/24/25 10:10 Consult to General Surgery Routine Comment: Consulting Provider: Connor Ellison Reason for consultation: neck abscess Has provider been notified: Yes Discharge provider: Walter Nunez MD Summary Hospital Course Discharge Diagnosis: 1. Neck abscess, MRSA. Improved after incision and drainage. Hospital Course: He was admitted with a right neck abscess and started on antibiotics. Surgery incised and drained this and March 24 with good results. It was packed. The patient had good improvement of his pain it was felt to be stable for discharge on March 25. Sensitivities reveal a resistance to Bactrim, it was sensitive to doxycycline. He will discharge with doxy b.i.d. for least 7 more days, surgery follow up next week, as well as packing the wound twice a day in his given instructions and supplies for this. Status at Discharge Cognitive/behavioral status at discharge: oriented Functional status at discharge: independent ambulation Overall status at discharge: patient is back to baseline Time Spent with Patient Time spent: Greater than 30 minutes Exam Vital Signs (past 8 hours): - 03/25/25 08:00 Temperature 97.6 F Pulse Rate 60 Respiratory Rate 12 Blood Pressure 122/71 Pulse Oximetry 99 Oxygen Flow Rate 0 Oxygen Delivery Method Room Air Oxygen Flow Rate 0 Narrative Exam Narrative: NAD, alert and oriented. Fluent speech. Lungs are clear, normal rate and effort. Heart is regular, no murmur gallop or rub. Abdomen is soft, non distended. Extremities are free of edema. The neck abscess has been incised, induration and redness are much improved. There is a packing in place. Objective Labs 03/22/25 14:25 03/23/25 03:30 Labs: Laboratory Results - last 24 hr 03/24/25 15:40 Vancomycin Trough 14.0 PFSH Social History household members: friend(s) alcohol intake: current Discharge Assessment & Plan Assessment and Plan Assessment: 1. Neck abscess, MRSA. Improved after incision and drainage. Plan of Treatment: Doxycycline b.i.d. for an additional 7 days, surgery clinic follow up next week, change packing twice a day. Follow up for increased redness, swelling, pain, fevers, or discharge. Discharge Plan Discharge Plan Patient Disposition: Home Provider Discharge Comment: Stable for discharge on antibiotics and home packing BID. Discharge orders & Medications Prescriptions: New doxycycline hyclate 100 mg capsule 100 mg PO BID Qty: 14 0RF Continued dextroamphetamine-amphetamine [Adderall] 30 mg tablet 30 mg PO DAILY PRN (Reason: ADHD) Discontinued sulfamethoxazole-trimethoprim [Bactrim DS] 800-160 mg tablet 1 tab PO BID 7 Days Qty: 14 0RF Follow up/Referrals: Connor Ellison MD [Physician, General Surgery] - 1 Week Referral Note: Follow-up appt on March 31, 2025 at 1:30 pm with . [phone] Discharge Health Status Multidrug resistant organism: MRSA Diet/Activity/Treatments Diet: Regular Activity: As tolerated. Skin/Wound/Dressing Care Report to your healthcare provider any signs of infection, such as:: chills, fever, increased pain, unusual drainage and unusual redness Visit Report/Discharge Packet Instructions: DI for Methicillin-Resistant Staph Infection (MRSA), DI for Incision and Drainage of a Skin Abscess Stand Alone Forms: Patient Portal/API
--- NOTE | 2025-03-25 11:48 | PC.NURSE ---
Removed pt PIV, pt tolerated well. Provided 1 of 2 BID dressing changes and instructed pt with teachback about wet to dry dressing/wound packing. Instructed pt to follow up with MD Ellison at 03/31 appt. Provided education on abx, pain medications, self care, and activity. Pt stated all questions answered. All belongings with patient. ACU A/C adapter back to front desk manager. Pt declined W/C, pt escorted out ambulatory by IRIS Dooley, picked up by friend for ride via POV.
== END 2025-03-25 11:54 | disposition home or self-care (01) | DRG 603 ==
LOC: ED 14:15 → AC 17:17
PROVIDERS: Pharmacist Pharmacist Clinician (PhC)/ Clinical Pharmacy Specialist; Admitting Provider Internal Medicine; Emergency Provider Student in an Organized Health Care Education/Training Program; Referring Provider Student in an Organized Health Care Education/Training Program; Visit Provider Internal Medicine
DX: L02.11 Cutaneous abscess of neck (principal); L03.211 Cellulitis of face; L03.221 Cellulitis of neck; B95.62 Methicillin resistant Staphylococcus aureus infection as the cause of diseases classified elsewhere; F90.9 Attention-deficit hyperactivity disorder, unspecified type
CPT/HCPCS: 10060; 36415; 70491; 80048; 80053; 80202; 80305; 81003; 83036; 83605; 83690; 85025; 87040; 87070; 87075; 87077; 87147; 87186; 87205; 87389; 96365; 96366; 96375; 99222; 99284; J0696; J1171; J1885; J2270; J2405; J3360; Q9967

== ENCOUNTER 2025-04-19 06:13 | Emergency (ER) | payer SELFPAY ==
[2025-04-19] VITALS (7 sets, daily range): BP systolic 138–154; BP diastolic 67–111; PULSE 89–111; RESP 16–18; TEMP 36.4; O2SAT 94–99; BMI 28.1
--- NOTE | 2025-04-19 06:26 | ED_ITS ---
HPI - Allergic Reaction General Chief complaint: Allergic Reaction Stated complaint: allergic reaction Time Seen by Provider: 04/19/25 06:21 Source: patient Mode of arrival: Ambulatory History of Present Illness HPI narrative: 30-year-old gentleman with no significant medical history presents with rash chest, abdomen, back, arms, legs, this morning despite using Benadryl cream and acetaminophen. Patient denies new soaps, lotions, detergents, medication, supplements, new foods, pets, or foreign travel. Patient denies chest pain, shortness breath, tongue swelling, difficulty swallowing, fever, chills, rash. Other than what is stated 14 point review of system is negative. Related Data Home Medications ?Medication ?Instructions ?Recorded ?Confirmed dextroamphetamine-amphetamine 30 30 mg PO DAILY PRN AD HD 03/24/25 03/24/25 mg tablet (Adderall) Previous Rx's ?Medication ?Instructions ?Recorded doxycycline hyclate 100 mg capsule 100 mg PO BID #14 c aps 03/25/25 mupirocin 2 % topical ointment 1 applic topical BID 6 weeks #22 04/01/25 grams doxycycline hyclate 100 mg capsule 100 mg PO BID #14 c aps 04/19/25 famotidine 20 mg tablet (Pepcid) 20 mg PO BID #10 tabs 04/19/25 prednisone 20 mg tablet 40 mg (2 x 20 mg) PO DAILY # 5 tabs 04/19/25 Allergies Allergy/AdvReac Type Severity Reaction Status Date / Time No Known Drug Allergies Allergy Verified 03/22/25 11:38 Review of Systems Review of Systems ROS Unobtainable: All systems reviewed & are unremarkable except as noted in HPI and below Patient History Social History household members: friend(s) alcohol intake: current tobacco type: e-cigarettes and vaping Exam Narrative Exam Narrative: GENERAL: [30] year old patient appears stated age. Well-developed patient, in mild distress. HEAD: Atraumatic. Normocephalic. EYES: Pupils equal round and reactive. Extraocular motions intact. No scleral icterus. No injection or drainage. ENT: Nose without bleeding, purulent drainage. Throat without erythema, tonsillar hypertrophy or exudate. Airway patent. NECK: Trachea midline. Non tender CARDIOVASCULAR: Regular rate and rhythm without murmurs, gallops, or rubs. RESPIRATORY: Clear to auscultation. Breath sounds equal bilaterally. No wheezes, rales, or rhonchi. GASTROINTESTINAL: Abdomen soft, non-tender, nondistended. EXTREMITIES: No edema or joint tenderness. BACK: Nontender without deformity or crepitance. No flank tenderness. NEURO: AOx3. SKIN: Urticarial hives bilateral forearms, chest, abdomen, medial thigh, entire back, abscess draining on back of head with surrounding cellulitis Initial Vital Signs Initial Vital Signs: Vital Signs Temperature 97.6 F 04/19/25 06:22 Pulse Rate 111 H 04/19/25 06:22 Respiratory Rate 18 04/19/25 06:22 Blood Pressure 154/96 H 04/19/25 06:22 Pulse Oximetry 99 04/19/25 06:22 Oxygen Delivery Method Room Air 04/19/25 06:22 Course Vital Signs Vital signs: Vital Signs - 8 hr 04/19/25 06:22 Temperature 97.6 F Pulse Rate 111 H Respiratory Rate 18 Blood Pressure 154/96 H Pulse Oximetry 99 Oxygen Delivery Method Room Air MDM - Allergic Reaction MDM Narrative Medical decision making narrative: Vital signs, nurse triage note, medication list, previous ER visits, all reviewed. Patient given Solu-Medrol Pepcid and Benadryl here. Rash completely resolved. Differential diagnosis includes allergic reaction, contact dermatitis. DC home on prednisone Pepcid and Benadryl as needed for itch and rash and doxycycline rx. Discharge Plan Departure Patient Disposition: Home Clinical Impression: Abscess Allergic reaction Qualifiers: Encounter type: initial encounter Qualified Code(s): T78.40XA - Allergy, unspecified, initial encounter Instructions: DI for General Allergic Reactions Activity Restrictions/Additional Instructions: Return with new or worsening symptoms. Take your medicines as directed. Prescriptions: New prednisone 20 mg tablet 40 mg PO DAILY Qty: 5 0RF famotidine [Pepcid] 20 mg tablet 20 mg PO BID Qty: 10 0RF doxycycline hyclate 100 mg capsule 100 mg PO BID Qty: 14 0RF No Action mupirocin 2 % ointment 1 applic topical BID 42 Days Qty: 22 2RF dextroamphetamine-amphetamine [Adderall] 30 mg tablet 30 mg PO DAILY PRN (Reason: ADHD) doxycycline hyclate 100 mg capsule 100 mg PO BID Qty: 14 0RF Referrals: Miscellaneous,Doctor, MD [Primary Care Provider, Medical] Stand Alone Forms: Patient Portal/API
[2025-04-19] MEDS: FAMOTIDINE 20 MG/2 ML VIAL IV (06:37)
[2025-04-19] MEDS: diphenhydrAMINE 50 MG/ML VIAL IV (06:37)
--- NOTE | 2025-04-19 07:54 | PC.NURSE ---
tech in to room to obtain vital signs, noted blood on the pillow, patient has what appears to be an open abscess, dr miller, in to swab. patient states it opened a couple of days ago.
[2025-04-19] MEDS: DOXYCYCLINE HYCLATE 100 MG TABLET PO (08:00)
== END 2025-04-19 08:31 | disposition home or self-care (01) ==
PROVIDERS: Emergency Provider Family Medicine
DX: L02.212 Cutaneous abscess of back [any part, except buttock and flank] (principal); T78.40XA Allergy, unspecified, initial encounter; X58.XXXA Exposure to other specified factors, initial encounter
CPT/HCPCS: 87070; 87077; 87147; 87186; 87205; 96374; 96375; 99284; J1200; J2919

== ENCOUNTER → 2025-06-24 13:47 | Outpatient (CLI) | payer SELFPAY | PROVIDERS: Visit Provider Surgery | DX: L02.11 Cutaneous abscess of neck (principal) | CPT/HCPCS: 87070; 87075; 87077; 87147; 87186; 87205 ==